=== PATIENT | female | born 1990 | race Caucasian/White ===

== ENCOUNTER 2024-07-05 16:26 | Emergency (ER) | payer OTHER, SELFPAY ==
--- OUTSIDE RECORDS SUMMARY | 2024-07-05 16:28 | XMS_ITS | Clinical Summary ---
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 Name Role Phone Morales, Juany NANCY Primary Care Provider [phone] Allergies Active Allergy Reactions Criticality Noted Date Comments Amoxicillin-Pot Clavulanate Diarrhea Low 10/27/19 18 Medications valACYclovir (VALTREX) 1 gram tablet Take 1 tablet (1,000 mg total) by mouth daily 024 Active ondansetron ODT (ZOFRAN-ODT) 4 mg disintegrating tablet Take 1 tablet (4 mg total) by mouth every 8 (eight) hours as needed for nausea or vomiting 20 tablet 1 024 Active semaglutide (Wegovy) 1.7 mg/0.75 mL auto-injector INJECT 1 PEN (1.7MG) SUBCUTANEOUSLY ONCE A WEEK 12 mL 025 Active semaglutide (Wegovy) 1.7 mg/0.75 mL auto-injectorIndi cations:Weight Loss Management for Obese Patient (BMI >= 30) Inject 0.75 mL (1.7 mg total) under the skin every 7 days 3 mL 024 2024 Discontinued Active Problems Problem Noted Date Diagnosed Date Cervical cancer screening 03/29/2024 Assessment & Plan (03/29/2024 8:54 AM CDT): Needs to establish care with gynecology. Referral placed Obesity, morbid, BMI 40.0-49.9 10/12/2023 Assessment & Plan (03/29/2024 8:54 AM CDT): Doing well on the Wegovy. Increase dose to 1.7mg. Increase exercise. Some nausea on day 2 after injection, let me know if this worsens with dose changes. Follow up in 3 months. Assessment & Plan (11/12/2023 8:17 AM CDT): Doing well. Will increase wegovy to .5mg weekly. Zofran for nausea as needed. May increase to 1mg next month or stay on .5mg for another month. She will call and let us know. Will f/u in 2 months for weight check. Assessment & Plan (10/12/2023 8:51 AM CDT): BMI Follow-up includes: education provided. Today we discussed weight loss medications using Chip 7 slide presentations including risks/ benefits of qysmia, orlistat, contrave, vyvanse for binge eating, phentermine, saxenda, wegovy. We will try for prior auth for wegovy. I went over injection methods with her. Will have her return in 1 month for continued weight loss counseling, weigh in and f/u Annual physical exam 09/05/2023 Assessment & Plan (09/05/2023 5:12 PM CDT): -Recommended: Healthy diet. Avoiding junk food/fast food. -30 minutes of exercise most days of the week. Increase to 45 minutes for weight loss. Health Maintenance reviewed - labs ordered.. -Influenza vaccine every year Recommend: - Topic Date Due Varicella Vaccines (1 of 2 - 13+ 2-dose series) Never done DTaP/Tdap/Td Vaccine (7 - Td or Tdap) 02/07/2017 -F/u in 1 year for Annual PE or sooner if needed -I asked her to make a follow-up appointment to discuss weight loss, briefly discussed medications and insurance coverage Anxiety 01/21/2021 Chronic sinusitis 01/21/2021 Obesity 01/21/2021 Assessment & Plan (09/05/2023 5:13 PM CDT): Will have her return at her convenience to discuss weight loss, nutrition and weight loss options. Resolved Problems Problem Noted Date Diagnosed Date Resolved Date Sprain of anterior talofibul ar ligament of right ankle 04/28/2021 09/02/2023 Achilles tendinitis of right lower extremity 1 09/02/2023 Otitis media 01/21/2021 09/02/2023 Tendinitis of foot 01/21/2021 4 Mass 03/13/2019 11/12/2023 Overview (03/13/2019): Added automatically from request for surgery [id number] Acute abdominal pain in right upper quadrant 8 09/02/2023 Acute right-sided thoracic back pain 10/26/2017 09/02/2023 Encounters Date Type Department Care Team Description 06/06/2024 Telephone [facility] Primary Care at [address] [address] Juany Morales, NANCY PA for Wegovy 04/14/2024 Telephone [facility] Obstetrics and Gynecology [address] [place] [address] Mike Espinoza 04/07/2024 Telephone [facility] Obstetrics and Gynecology [address] [facility] Outpatient Health 7th Floor [address] [place] [address] Shobha Bautista from Last 3 Months Immunizations Name Administration Dates Next Due DTP 01/08/1993, 2,01/31/1991,02/18,1988 HPV, Quadrivalent 02/07/2007 Hep A, Pediatric 02/07/2007 Hep B, Adolescent or Pediatric 03/28/1999,1998,08/01/1998 IPV 01/08/1993, 2,01/31/1991,02/18,1988 Influenza, Trivalent, Cell Culture-based MDCK, Preservative Free, Antibiotic Free, Intramuscular 03/08/2024 Influenza, Unspecified 05/31/2023(Deferr ed: Patient Refused),05/31/2022(Deferred: Patient Refused) MMR 02/08/1992,01/31/1991 Meningococcal MCV4P (Menactra) 02/07/2007 Td, adsorbed 01/03/2003 Tdap 02/07/2007 Surgical History Surgery Date Site/Laterality Comments GALLBLADDER SURGERY 05/31/2017 - 05/30/2018 ABDOMINAL SURGERY Gall Bladder removed Medical History Medical History Date Comments Obesity Family History Medical History Relation Name Comments No Known Problems Brother 1 Hyperlipidemia Father Diabetes Maternal Grandfather Zack Cowart Vision loss Maternal Grandfather Zack Cowart Diabetes Mother Joleen Dean Vision loss Mother Joleen Dean Diabetes Mother's Brother Zack Cowart Vision loss Mother's Brother Zack Cowart Relation Name Status Comments Brother 1 Brother 2 Alive Brother 3 Alive Brother 4 Alive Brother 5 Alive Brother 6 Alive Father Maternal Grandfather Zack Cowart Mother Joleen Dean Mother's Brother Zack Cowart Sister 5 sisters Alive Social History Tobacco Use Types Packs/Day Years Used Date Smoking Tobacco: Never Smokeless Tobacco: Never Tobacco Cessation:Counseling Given: Not Answered Alcohol Use Standard Drinks/Week Comments Yes 0 (1 standard drink = 0.6 oz pur e alcohol) social PHQ-2 Answer Date Recorded PHQ-2 Total Score (If total score is 3 or more points, staff should administer the PHQ-9) 0 03/29/2024 Comments Unknown Sex and Gender Information Value Date Recorded Sex Assigned at Not on file Legal Sex 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 Gender Identity Female 05/18/2022 8:17 AM CHRONOGRAPH OPERATOR Sexual Orientation Straight 05/18/2022 8: 17 AM CHRONOGRAPH OPERATOR Obstetrics History Last Filed Vital Signs Vital Sign Reading Time Taken Comments Blood Pressure 96/68 03/29/2024 8:24 AM CDT Pulse 87 03/29/2024 8:24 AM CDT Temperature 36.6 C (97.9 F) 03/29/2024 8:24 AM CDT Respiratory Rate 20 03/29/2024 8:24 AM CDT Oxygen Saturation 97% 03/29/2024 8:24 AM CDT Inhaled Oxygen Concentration - - Weight 144.7 kg (319 lb) 03/29/2024 8:24 AM CDT Height 172.7 cm (5' 8 ) 03/29/2024 8:24 AM CDT Body Mass Index 48.5 03/29/2024 8:24 AM CDT Plan of Treatment Health Maintenance Due Date Last Done Comments Cervical Cancer Screening 1988 HPV Vaccines (2 - 3-dose series) 03/07/2007 02/07/2007 DTaP/Tdap/Td Vaccine (7 - Td or Tdap) 02/07/2017 02/07/2007, 01/03/2003, 01/08/1993, Additional history exists Covid-19 Vaccine ( season) 2024 07/12/2020, 06/21/2020 Regular Well Visit/Exam 18-64 09/01/2024 09/02/2023 Depression Screening 03/29/2025 03/29/2024, 11/12/2023, 10/12/2023, Additional history exists Hepatitis C Screening Completed 01/05/2022 Influenza Vaccine Completed 03/08/2024 Pneumococcal vaccine <65 Aged Out No longer eligible based on patient's age to complete this topic Varicella Vaccines Discontinued Procedures Procedure Name Priority Date/Time Associated Diagnosis Comments HEPATITIS C ANTIBODY Routine 01/05/2022 9:52 AM CDT from Last 3 Months or Most Recently Relevant to Health Maintenance Results * Hepatitis C antibody (01/05/2022 9:52 AM CDT) Hep C Ab Nonreactive Nonreactive YANIRA [facility] Comment:Antibodies to HCV no t detected. Does NOT exclude the possibility of recent exposure to HCV. Blood 01/05/2022 9:52 AM CDT 01/05/2022 11:11 AM CDT us Amy Rajput MD LAB MICROBIOLOGY - GENER AL ORDERABLES Edited Result - Final YANIRA [facility] Department [place] [address] from Last 3 Months or Most Recently Relevant to Health Maintenance Insurance [facility] CHOICE [place] [place] [id number] [place] [address] EMPL[employer]ES [place] [id number] Care Teams Tubing Mill Operator Relationship Specialty Start Date End Date Juany Morales NP PCP - General Family Medicine 09/02/23
--- OUTSIDE RECORDS SUMMARY | 2024-07-05 16:28 | XMS_ITS | Referral Summary ---
Author Organization [facility] Address [address] [place] [address] Care Team Providers Care Pageant Director Name Role Phone Juany Morales MANAGER BUSINESS CONTINUITY Primary Care Provider [phone] Encounters Date Type Department Care Team Description 06/06/2024 Telephone [facility] Medical [facility] Primary Care at [address] [address] Juany Morales NP PA for Wegovy 04/14/2024 Telephone [facility] Obstetrics and Gynecology [address] [place] [address] Mike Espinoza 04/07/2024 Telephone [facility] Obstetrics and Gynecology [address] [facility] Outpatient Health 7th Floor [address] [place] [address] Shobha Bautista from Last 3 Months Allergies Active Allergy Reactions Criticality Noted Date [...] (03/13/2019): Added automatically from request for surgery [id number] Acute abdominal pain in right upper quadrant 8 09/02/2023 Acute right-sided thoracic back pain 10/26/2017 09/02/2023 Immunizations Name Administration Dates Next Due DTP 01/08/1993, 2,01/31/1991,02/18,1988 HPV, Quadrivalent 02/07/2007 Hep A, Pediatric 02/07/2007 Hep B, Adolescent or Pediatric 03/28/1999,1998,08/01/1998 IPV 01/08/1993, 2,01/31/1991,02/18,1988 Influenza, Trivalent, Cell Culture-based MDCK, Preservative Free, Antibiotic Free, Intramuscular 03/08/2024 Influenza, Unspecified 05/31/2023(Deferr ed: Patient Refused),05/31/2022(Deferred: Patient Refused) MMR 02/08/1992,01/31/1991 Meningococcal MCV4P (Menactra) 02/07/2007 Td, adsorbed 01/03/2003 Tdap 02/07/2007 Social History Tobacco Use Types Packs/Day Years [...] on file 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 Comment:Antibodies to HCV no t detected. Does NOT exclude the possibility of recent exposure to HCV. Blood 01/05/2022 9:52 AM CDT 01/05/2022 11:11 AM CDT Amy Rajput MD LAB MICROBIOLOGY - GENER AL ORDERABLES Edited Result - Final YANIRA [facility] Department [place] [address] from Last 3 Months or Most Recently Relevant to Health Maintenance Insurance [facility] CHOICE PLUS [employer] Care Teams Pageant Director Relationship Specialty Start Date End Date Juany Morales NP PCP - General Family Medicine 09/02/23
[2024-07-05 16:33] VITALS: BP 119/77; PULSE 77; RESP 16; TEMP 36.6; O2SAT 98
--- NOTE | 2024-07-05 18:13 | ED.GENADULT ---
HPI - General Adult General Chief complaint: Nausea/Vomiting/Diarrhea Stated complaint: Vomiting/Diarrhea Time Seen by Provider: 07/05/24 18:00 Source: patient, RN notes reviewed and old records reviewed Mode of arrival: ambulatory Limitations: no limitations History of Present Illness HPI narrative: 34 year old female who presents to [facility] care with complaints of nausea and vomiting and diarrhea since Wednesday with fatigue. Patient reports that she has not had any fevers, cough or any body aches. Patient reports that she is still vomiting today. Patient reports that daughter has been ill with similar symptoms. Patient reports no abdominal pain. Patient reports that she needs work note to return to work that she is feeling better. Patient states that she has taken some Zofran for her symptoms. Patient did have episode of vomiting in clinic so instructed patient she can't return to work if she is still having symptoms. MD complaint: nausea vomiting, diarrhea Onset (ago): day(s) (day 4 of symptoms. ) Severity: moderate Treatments prior to arrival: other (zofran) Related Data Home Medications ?Medication ?Instructions ?Recorded ?Confirmed ?Last Taken ?Type ondansetron 4 mg disintegrating mg 07/05/24 Unknown History tablet semaglutide (weight loss) 0.25 mg subcut 07/05/24 Unknown History mg/0.5 mL subcutaneous pen injector (Wegovy) Allergies Allergy/AdvReac Type Severity Reaction Status Date / Time No Known Allergies Allergy Verified 07/05/24 17:10 Review of Systems Review of Systems: CONSTITUTIONAL: Denies fever, chills, or sweats. EYES: Denies visual changes, redness, or discharge. ENT: Denies rhinorrhea, congestion, sore throat, or otalgia. CARDIOVASCULAR: Denies chest pain, palpitations, or edema. RESPIRATORY: Denies cough or dyspnea. GASTROINTESTINAL: Denies abdominal pain,positive for nausea, vomiting, or diarrhea. GENITOURINARY: Denies dysuria or hematuria. SKIN: Denies rash or itching. MUSCULOSKELETAL: Denies back pain, joint pain, or myalgia. NEUROLOGIC: Denies headache, numbness, or weakness. PSYCHIATRIC: Denies anxiety or depression. All systems reviewed & are unremarkable except as noted in HPI and below PMFSH Past Medical History Medical History Routine gynecological examination FH: cholecystectomy Family History Family History Father Diabetes mellitus Other Hypertension Social History Social History Smoking status: Never smoker Alcohol intake: never Substance use: never Substance use type: does not use Living arrangements: with family Occupation/Education: occupation Additional occupation/education comments: [employer] Gender identity (if verbalized by the patient): Female Sexual Orientation (if Verbalized by the Patient): Straight or Heterosexual Comments At time of signature, agree with nursing past medical, surgical, social and family history. There is no relevant family history pertinent to the presenting complaint Exam Narrative: GENERAL: Well-appearing, well-nourished, obese and in no acute distress. HEAD: Normocephalic, atraumatic. EYES: PERRLA and EOMI. ENT: Nares clear, no rhinorrhea or epistaxis. Mucous membranes moist.TM's normal with good light reflex, throat pink with no swelling NECK: Supple.no lymphadenopathy CHEST: Clear to auscultation. No respiratory distress. no cough noted SAO2 98% on room air HEART: Regular rate and rhythm. No murmur heard. Normal peripheral pulses. ABDOMEN: Soft, nontender, no McBurney point tenderness,nondistended, normal active bowel sounds.continues to have vomiting did have loose stool today also EXTREMITIES: Normal range of motion. No edema. SKIN: Warm, dry, no rash. NEURO: No focal deficits. Alert and oriented x3. Course Course Emergency Course: Patient is aware of diagnosis, understands and agrees to treatment plan.? Anticipatory guidance given.? Patient agrees to follow-up as directed and is aware of reasons to seek care at the emergency department. Portions of this record may have been created with voice recognition software Level of Care: Express Care Visit Vital Signs Vital signs: Vital Signs Temperature 36.6 C 07/05/24 16:33 Pulse Rate 77 07/05/24 16:33 Respiratory Rate 16 07/05/24 16:33 Blood Pressure 119/77 07/05/24 16:33 Pulse Oximetry 98 07/05/24 16:33 Oxygen Delivery Room Air 07/05/24 16:33 Temperature 36.6 C 07/05/24 16:33 Pulse Rate 77 07/05/24 16:33 Respiratory Rate 16 07/05/24 16:33 Blood Pressure 119/77 07/05/24 16:33 Pulse Oximetry 98 07/05/24 16:33 Oxygen Delivery Room Air 07/05/24 16:33 Reviewed Medical Decision Making MDM Narrative Medical decision making narrative: Exam findings and imaging show no acute concerns or changes; patient is non-toxic appearing and is in no distress.? Patient is appropriate for outpatient treatment and follow-up Differential Diagnosis Differential Diagnosis: viral syndrome. Influenza, COVID, gastroenteritis, Medical Records Medical records reviewed: Yes I reviewed the external patient's medical records. Vital Signs Vital Signs: Vital Signs Temperature 36.6 C 07/05/24 16:33 Pulse Rate 77 07/05/24 16:33 Respiratory Rate 16 07/05/24 16:33 Blood Pressure 119/77 07/05/24 16:33 Pulse Oximetry 98 07/05/24 16:33 Oxygen Delivery Room Air 07/05/24 16:33 Temperature 36.6 C 07/05/24 16:33 Pulse Rate 77 07/05/24 16:33 Respiratory Rate 16 07/05/24 16:33 Blood Pressure 119/77 07/05/24 16:33 Pulse Oximetry 98 07/05/24 16:33 Oxygen Delivery Room Air 07/05/24 16:33 Lab Data Lab results reviewed: Yes I reviewed the patient's lab results. Lab results narrative: Influenza A negative, Influenza B negative, COVID antigen negative Labs: Lab Results 07/05/24 Range/Units 18:33 POC Influenza A Ag Negative (Negative) POC Influenza B Ag Negative (Negative) POC SARS CoV-2 Ag Negative (Negative) reviewed Critical Care Time Critical Care Time Critical Care Time: No Discharge Plan Discharge Clinical Impression: Viral syndrome, Nausea, vomiting, and diarrhea Patient Disposition: Home, Self-Care Condition: Stable Instructions: Antibiotic Form, Viral Syndrome (ED) Additional Instructions: Clear liquids for the next 8-10 hours, then advance to a bland diet as tolerated A bland diet can consist of--BRAT diet which is bananas, rice, applesauce, and toast Avoid fried, greasy, fatty, fried foods Avoid caffeine, nicotine, and alcohol Return to your regular diet in the next 3-4 days Medication as directed for nausea and vomiting Tylenol for pain fever Sometimes ibuprofen/Aleve can cause increased stomach upset [id number] Imodium if develop diarrhea Follow-up with her PCP if continued problems or uncontrolled pain If your symptoms persist, change or worsen significantly before you can contact your personal physician then please, without delay, go to the emergency department for further evaluation. Follow-up with PCP in 7-10 days or sooner if needed Patient Language: Kazakh Prescriptions: New ondansetron 4 mg tablet,disintegrating 4 mg PO Q6H PRN (Reason: nausea and vomiting) Qty: 14 0RF dicyclomine 20 mg tablet 20 mg PO TID Qty: 14 0RF No Action ondansetron 4 mg tablet,disintegrating Wegovy 0.25 mg/0.5 mL pen injector SUBCUT Follow-up/Referrals: Andrew,SUSANNE RasmussenP [Primary Care Provider] - Stand Alone Forms: Work/School Release IP Time of Disposition: 18:41 Quality Manolo Coma Scale Eyes: Open Verbal: Oriented and Alert Motor: Follows Commands Manolo Coma Total Score: 15
[2024-07-05 18:35] LABS: EDCOVIDSCREEN Negative (Negative); EDINFLUASCREEN Negative (Negative); EDINFLUBSCREEN Negative (Negative)
== END 2024-07-05 18:45 | disposition home or self-care (01) ==
PROVIDERS: Emergency Provider Registered Nurse; PCP Nurse Practitioner Family
DX: B34.9 Viral infection, unspecified (principal); R11.2 Nausea with vomiting, unspecified; R19.7 Diarrhea, unspecified; Z20.822 Contact with and (suspected) exposure to COVID-19
CPT/HCPCS: 87426; 87804; 99213; G0463